=== PATIENT | male | born 1970 | race Caucasian/White ===

== ENCOUNTER → 2023-03-26 | Outpatient (CLI) | payer OTHER, SELFPAY ==
[2023-03-26 07:12] LABS: Absolute Lymphocyte Count 1.68 X10^3/uL (0.83-4.51); Absolute Neutrophil Count 4.2 X10^3/uL (2.0-7.7); Basophil# 0.07 X10^3/uL; Basophil% 1.1 % (0-1); Eosinophil# 0.14 X10^3/uL; Eosinophils% 2.1 % (0-5); Hematocrit 44.6 % (40-54); Hemoglobin 14.4 g/dL (13.0-16.5); Lymphocyte # 1.68 X10^3/ul (0.83-4.51); Lymphocyte % 25.2 % (19-41); Mean Corp Hgb Conc 32.3 g/dL (32-36); Mean Corpuscular Hgb 28.8 pg (27.0-32.0); Mean Corpuscular Volume 89.2 fL (80-94); Mean Platelet Vol. 9.8 fl (6.2-12.0); Monocyte# 0.53 X10^3/uL; NRBC Flagged by Analyzer 0 % (0-5); Neutrophil # 4.23 X10^3/uL (2.7-7.7); Neutrophil % 63.4 % (47-70); Platelet Count 290 K/mm3 (150-450); RBC Distribution Width CV 12.5 % (11.6-14.6); White Blood Count 6.7 K/mm3 (4.4-11.0)
[2023-03-26 07:51] LABS: ALB/GLOB Ratio 1.2 RATIO (0.9-2.4); AST(SGOT) 18 U/L (15-37); Alanine Aminotransfer ALT/SGPT 32 U/L (16-61); Albumin, Serum 3.7 g/dL (3.2-5.0); Alkaline Phosphatase 80 U/L (45-117); BUN 17 mg/dL (7-18); BUN/Creat Ratio 17.3 RATIO (10-20); Calcium,Total 8.6 mg/dL (8.5-10.1); Chloride 109 mmol/L (98-107); Cholesterol 221 mg/dL (200); Creatinine, Serum 0.98 mg/dL (0.70-1.30); EST Glomerular Filtration Rate 85 mL/min (>60); Est Glom Filt Rate - Afr Amer 102 mL/min (>60); Globulin 3.2 g/dL (2.2-4.2); Glucose 113 mg/dL (74-106); Potassium 4.3 mmol/L (3.5-5.1); Protein, Total 6.9 g/dL (6.4-8.2); Sodium Level 140 mmol/L (136-145); Triglycerides 118 mg/dL
[2023-03-26 07:52] LABS: Anion Gap 7 (5-15); High Density Lipoprotein 56 mg/dL; PSA,Total - Annual Screen 0.98 ng/mL (0.00-4.00); Thyroid Stim Hormone (TSH) 0.94 uIU/mL (0.358-3.74); Very Low Density Lipoprotein 24 mg/dL (5-40)
[2023-03-26 08:27] LABS: Vitamin D,25 Hydroxy 24.5 ng/mL
[2023-03-26 13:46] LABS: Hemoglobin A1c 5.3 % (3.8-5.6)
== END | disposition home or self-care (01) ==
PROVIDERS: PCP Internal Medicine; Referring Provider Internal Medicine; Visit Provider Internal Medicine
DX: Z00.00 Encounter for general adult medical examination without abnormal findings (principal); R73.9 Hyperglycemia, unspecified; Z13.220 Encounter for screening for lipoid disorders; Z12.5 Encounter for screening for malignant neoplasm of prostate; E55.9 Vitamin D deficiency, unspecified
CPT/HCPCS: 36415; 80053; 80061; 82306; 83036; 84153; 84443; 85025; G0103

== ENCOUNTER 2023-05-06 09:05 | Day surgery (SDC) | payer OTHER, SELFPAY ==
[2023-05-06] VITALS (9 sets, daily range): BP systolic 105–156; BP diastolic 58–82; PULSE 55–71; RESP 16–18; TEMP 36.2–36.7; O2SAT 96–100; BMI 28.5
--- NOTE | 2023-05-06 09:31 | PCM.HP.BLA ---
History and Physical Date of Admission: 05/06/23 Visit Reasons: UMBILICAL HERNIA/COLONOSCOPY Chief Complaint: bump above anus, belly button changes and bumps on hands Allergies seasonal Allergy (Intermediate, Uncoded 03/06/23 08:26) other [facility] Medical History Hypertension Pinched nerve in neck Pleurisy Family History Father Allergy to bee sting Gout Hypertension High cholesterol Diabetes Depression PTSD (post-traumatic stress disorder) Social History (Updated 03/06/23 @ 08:29 by Allen Guan) adopted: No household members: spouse housing: house number of children: 2 current occupational status: employed current occupation: forester current occupational exposures/hazards: No pets and animals: Yes pets and animals: cat(s) and dog(s) leisure activities: hunting and fishing history of recent travel: Yes ([place]) out of state: Yes sexually active: Yes Smoking Status: Never smoker Smokeless tobacco user: chewing tobacco alcohol intake: current details: couple beers during week substance use type: does not use well-balanced diet: about half the time caffeine: Yes eating out: 1-3 times/week during the past year weight has: increased > 10 lbs what type of physical activity do you participate in: walking sissy/taoism: Sabianism seatbelt use: always do you feel safe at home: Yes HPI HPI HPI: 52-year-old gentleman is being referred by Dr. Donna Esqueda for surgical consultation regarding a screening colonoscopy as well as an umbilical hernia. By report there is also a small external cystlike structure. The patient states that couple months ago he had a very uncomfortable bowel movement had a lot of anal pain it felt like it went right to his tailbone then it seems to have resolved will now he has pain less but he can still feel a residual little pea-sized lump. He has never had a colonoscopy. No family history of colon cancer. He has no pain currently. No bright red blood per rectum or melena. He has an umbilical hernia. This occurred about a year ago. States he was just bending over. 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 He otherwise states he enjoys good health ROS General General: No weight change, appetite, fatigue, colon cancer, breast cancer or weakness HEENT HEENT: No difficulty swallowing, eye injury, eye surgery, swollen glands or hoarseness Endo Endocrine: No thyroid disease, diabetes mellitus, thyroid cancer, Hair loss, heat intolerance or cold intolerance Skin Skin: No rash or changing moles Breast Breast: No left breast lump, right breast lump, nipple discharge, breast pain, abnormal mammogram, abnormal US or breast enlargement Musc Musculoskeletal: No back problems, arthritis, rheumatoid arthritis, gout or joint pain Cardio Cardiovascular: No murmur, pacemaker, heart disease, atrial fibrillation, high blood pressure, heart attack, heart stent, palpitations, shortness of breat with exertion or chest pain Psych Psychiatric: No depression, anxiety or hearing voices Resp Respiratory: No shortness of breath, No sleep apnea, No cough, No COPD, No asthma, No emphysema and No wheezing Gastro Gastrointestinal: No abdominal pain, No nausea or vomiting, No diarrhea, No constipation, No blood in stool, No acid reflux, No hemorrhoids, No ulcers, No gallbladder problem and No black,tarry stools Home Hematologic: No blood thinners, No blood disorders, No bleeding, No anemia and No blood clots Neuro Neurologic: No system reviewed and no additional complaints, except as documented, No as per HPI, No abnormal gait, No abnormal hearing, No abnormal movements, No abnormal speech, No behavioral changes, No burning sensations, No confusion, No convulsions, No disequilibrium, No dizziness, No localized weakness, No frequent falls, No headache(s), No lack of coordination, No loss of vision, No memory loss, No numbness, No other visual disturbances, No radicular pain, No restless legs, No sensory deficit, No syncope, No tingling, No tremor(s), No weakness and No other Exam Const General: cooperative, healthy appearing, comfortable and no acute distress [facility] Head: normal to inspection Eyes General: appearance normal, both eyes and all related structures Neck Neck: normal visual inspection Chest Chest palpation & inspection: normal inspection of the chest Resp Effort & Inspection: normal respiratory effort Auscultation: clear to auscultation bilaterally Cardio Rate: regular rate Rhythm: regular rhythm GI Palpation: soft and no hepatosplenomegaly Auscultation: normal bowel sounds Other: Superior aspect of the umbilicus there is a reducible umbilical hernia slightly tender on palpation. Approximately a centimeter defect. External anal exam demonstrates a less than pea-sized nodule posterior aspect very superficial. No external hemorrhoidal change. Very benign appearance. Musc Cervical Spine: normal cervical lordosis Skin General: no rashes or lesions noted Neuro General: patient alert, patient awake and patient oriented x3 Extrem General: no calf tenderness Psych Appearance: grossly normal Assessment and Plan Assessment and Plan (1) Colon cancer screening: Status: Acute (2) Umbilical hernia: Status: Acute Qualifiers: Obstruction and gangrene presence: without obstruction or gangrene Qualified Code(s): K42.9 - Umbilical hernia without obstruction or gangrene Plan: By history I suspect that the patient had a posterior anal fissure. Perhaps a very superficial fistula in ano. In any case it appears that it is self resolved and he is completely asymptomatic currently. At that time little palpable nodule feels like it is the endpoint of fistula. But there is no drainage. Appears otherwise quite unremarkable. I do recommend a screening colonoscopy with possible biopsy or polypectomy as indicated. I will also then get a better and clear view of this under sedation. He will schedule and proceed as noted. Regarding the umbilical hernia I recommend an umbilical herniorrhaphy with mesh. I believe a direct approach would be quite feasible. I also explained technique, benefit, risk, alternatives. Regarding the umbilical hernia he is interested in delaying that until the winter. He will notify us when he would like to proceed. I appreciate the opportunity of assisting with the surgical care Copy: Dr. Donna Anand M.D., F.A.C.S. I have examined the patient and the H&P has been reviewed. There are no clinical changes since date of exam. Norberto Anand M.D., F.A.C.S.
[2023-05-06] MEDS: Lactated Ringers 1,000 ML 15 ML IV (09:37)
--- NOTE | 2023-05-06 10:15 | COLBX_PTH ---
PATIENT: RUSS ADLER LOC: EN U#:[id number] AGE/SX: 52/M ROOM: RE05/06/[address]: Dr. Norberto Anand MD : 1970 BED: DIS: 05/06/2023 SPEC #: [id number] RECD: 05/06/23 13:34 STATUS: JALIL RUDOLPH #: [id number] GERMÁN: 05/06/23 10:[address]: Norberto Anand DEPT: SURGICAL PATHOLOGY RECD BY: Leonela Dailey ENTERED: 05/07/23 09:33 SP TYPE: COLON BX OT DR: Dr. Donna Esqueda MD Tissues: A - Cecum, NOS B - Transverse colon Procedures: Surgery Specimen Level IV HEADER OPERATION: Colonoscopy (MAC), polypectomy PRE-OP DIAGNOSIS: Colon cancer screening, umbilical hernia TISSUE SUBMITTED: A - Cecal polyp, B - Mid transverse pedunculated polyp MICROSCOPIC DIAGNOSIS A. Cecal polyp, polypectomy: Fragments of tubulovillous adenoma. B. Mid transverse pedunculated polyp, polypectomy: Fragments of tubulovillous adenoma. SJ:kvng 05/08/2023 MICROSCOPIC DESCRIPTION Slides are reviewed. GROSS DESCRIPTION A - Received in fixative is one container labeled with the patient's name and designated cecal polyp. The specimen consists of multiple irregular fragments of light cruz soft tissue that in aggregate measure 2.0 x 1.0 x 0.1 cm. The specimen is totally submitted in one cassette. B - Received in fixative is one container labeled with the patient's name and designated mid transverse polyp. The specimen consists of multiple irregular fragments of light cruz soft tissue ranging in size from <0.1 to 1.6 cm. The largest fragment is bisected and submitted along with the smaller fragments in one cassette. / AM:kvng 05/07/2023 TC:1 CPT: 62018 x2
--- NOTE | 2023-05-06 11:28 | OP.COLON_ITS ---
Patient Name: Zeus Sharp Procedure Date: 05/06/2023 10:56 AM Date of : 1970 Age: 52 Procedure: Colonoscopy Indications: Screening for colorectal malignant neoplasm Providers: Norberto Anand MD Medicines: See the Anesthesia note for documentation of the administered medications Patient Profile: Last Colonoscopy: none. The patient's first colonoscopy is today. Complications: No immediate complications. Procedure: Pre-Anesthesia Assessment: - Prior to the procedure, a History and Physical was performed, and patient medications and allergies were reviewed. The patient's tolerance of previous anesthesia was also reviewed. The risks and benefits of the procedure and the sedation options and risks were discussed with the patient. All questions were answered, and informed consent was obtained. Prior Anticoagulants: The patient has taken no previous anticoagulant or antiplatelet agents. ASA Grade Assessment: II - A patient with mild systemic disease. After reviewing the risks and benefits, the patient was deemed in satisfactory condition to undergo the procedure. After I obtained informed consent, the scope was passed under direct vision. Throughout the procedure, the patient's blood pressure, pulse, and oxygen saturations were monitored continuously. The colonoscope was introduced through the anus and advanced to the cecum, identified by appendiceal orifice and ileocecal valve. The colonoscopy was performed without difficulty. The patient tolerated the procedure well. The quality of the bowel preparation was fair. The ileocecal valve and the appendiceal orifice were photographed. Scope In: 11:07:40 AM Scope Withdrawal Time 0 hours 11 minutes 27 seconds Scope Out: 11:22:58 AM Total Procedure Duration Time 0 hours 15 minutes 18 seconds Findings: Skin tags were found on perianal exam. A 10 mm polyp was found in the cecum. The polyp was sessile. The polyp was removed with a hot snare. Resection and retrieval were complete. A 16 mm polyp was found in the mid transverse colon. The polyp was pedunculated. The polyp was removed with a hot snare. Resection and retrieval were complete. To prevent bleeding post-intervention, one hemostatic clip was successfully placed. There was no bleeding at the end of the procedure. Multiple diverticula were found in the sigmoid colon and descending colon. Impression: - Preparation of the colon was fair. - Perianal skin tags found on perianal exam. - One 10 mm polyp in the cecum, removed with a hot snare. Resected and retrieved. - One 16 mm polyp in the mid transverse colon, removed with a hot snare. Resected and retrieved. Clip was placed. - Diverticulosis in the sigmoid colon and in the descending colon. Recommendation: - Discharge patient to home. - Resume previous diet. - Continue present medications. - Repeat colonoscopy in 3 years for surveillance based on pathology results. - Return to my office in 1 week. Very small 3 mm posterior anal dermal nodule. No evidence for fistula or fissure. 2+ internal hemorrhoids. We will need to discuss if any biopsy of this lesion is performed. Await pathology on the 2 polyps. Procedure Code(s): --- Professional --- 28789, Colonoscopy, flexible; with removal of tumor(s), polyp(s), or other lesion(s) by snare technique Diagnosis Code(s): --- Professional --- Z12.11, Encounter for screening for malignant neoplasm of colon D12.0, Benign neoplasm of cecum D12.3, Benign neoplasm of transverse colon (hepatic flexure or splenic flexure) K64.4, Residual hemorrhoidal skin tags K57.30, Diverticulosis of large intestine without perforation or abscess without bleeding CPT copyright 2017 [employer]. All rights reserved. The codes documented in this report are preliminary and upon check viewer review may be revised to meet current compliance requirements. Norberto Anand MD 05/06/2023 11:27:54 AM This report has been signed electronically. Number of Addenda: 0 Note Initiated On: 05/06/2023 10:56 AM
--- NOTE | 2023-05-06 11:29 | OP.CCLET_ITS ---
05/06/2023 Donna Esqueda [facility] [address] [place] [address] Re : Colonoscopy procedure for Zeus Sharp Dear Dr. Esqueda This procedure was performed on Saturday, May 06, 2023. My impressions and recommendations are as follows: Impressions : - Preparation of the colon was fair. - Perianal skin tags found on perianal exam. - One 10 mm polyp in the cecum, removed with a hot snare. Resected and retrieved. - One 16 mm polyp in the mid transverse colon, removed with a hot snare. Resected and retrieved. Clip was placed. - Diverticulosis in the sigmoid colon and in the descending colon. Recommendations : - Discharge patient to home. - Resume previous diet. - Continue present medications. - Repeat colonoscopy in 3 years for surveillance based on pathology results. - Return to my office in 1 week. Very small 3 mm posterior anal dermal nodule. No evidence for fistula or fissure. 2+ internal hemorrhoids. We will need to discuss if any biopsy of this lesion is performed. Await pathology on the 2 polyps. My findings are described in the full procedure note, which is enclosed. If I can be of further assistance, please feel free to contact me at Doctor phone number(s): Work: . Sincerely, Norberto Anand MD 05/06/2023 11:27:54 AM This report has been signed electronically.
== END 2023-05-06 12:19 | disposition home or self-care (01) ==
LOC: EN 09:11 → AC 09:12
PROVIDERS: PCP Internal Medicine; Referring Provider Internal Medicine; Visit Provider Surgery
PROC: 0DJD8ZZ Inspection of Lower Intestinal Tract, Via Natural or Artificial Opening Endoscopic (ICD-10-PCS; CPT 45378; principal; 2023-05-06 10:10)
DX: Z12.11 Encounter for screening for malignant neoplasm of colon (principal); K57.30 Diverticulosis of large intestine without perforation or abscess without bleeding; K42.1 Umbilical hernia with gangrene; I10 Essential (primary) hypertension; D12.0 Benign neoplasm of cecum; D12.3 Benign neoplasm of transverse colon; K64.4 Residual hemorrhoidal skin tags
CPT/HCPCS: 45385; 88305; J7120; J2405

== ENCOUNTER → 2023-09-08 | Outpatient (CLI) | payer OTHER, SELFPAY ==
--- NOTE | 2023-09-08 | MASS_PTH ---
PATIENT: RUSS ADLER [facility][id number] AGE/SX: 53/M ROOM: RE09/08/[address]: Dr. Norberto Anand MD : 1970 BED: DIS: 09/08/2023 SPEC #: [id number] RECD: 09/08/23 15:18 STATUS: JALIL REMonie #: [id number] GERMÁN: 09/08/23 00:[address]: Norberto Anand DEPT: SURGICAL PATHOLOGY RECD BY: Bryce Wang ENTERED: 09/09/23 08:07 SP TYPE: Mass OTHR DR: Dr. Donna Esqueda MD Tissues: Rectum, NOS Procedures: Surgery Specimen Level III HEADER OPERATION: Excision of rectal lump PRE-OP DIAGNOSIS: Rectal lump TISSUE SUBMITTED: Rectal lump MICROSCOPIC DIAGNOSIS Rectal lesion, excision: Epidermal inclusion cyst. RAQUEL:kvng 09/10/2023 MICROSCOPIC DESCRIPTION Slides are reviewed. GROSS DESCRIPTION Received in fixative is one container labeled with the patient's name and designated rectal lump. The specimen consists of two irregular fragments of light cruz soft tissue ranging in size from 0.3 to 0.5 cm. The specimen is totally submitted in one cassette. / AM:kvng 09/09/2023 TC:5 CPT: 18040
== END | disposition home or self-care (01) ==
LOC: LABSPEC 15:29
PROVIDERS: PCP Internal Medicine; Referring Provider Surgery; Visit Provider Surgery
DX: L72.0 Epidermal cyst (principal)
CPT/HCPCS: 88304; 88305